=== PATIENT | male | born 1990 | race Two or more races ===

== ENCOUNTER 2025-05-22 10:56 | Outpatient (REF) | payer OTHER, SELFPAY ==
[2025-05-22 17:33] LABS: MANUAL DIFF FLAG NO
[2025-05-22 17:47] LABS: Hematocrit 44.7 % (42.0-52.0); Hemoglobin 14.9 g/dl (14.0-18.0); Mean Corpuscular HGB Conc 33.3 g/dl (31.0-36.0); Mean Corpuscular Hemoglobin 30.8 pg (27.0-33.0); Mean Corpuscular Volume 92.5 fL (80.0-98.0); Platelet Count 264 X10*3/uL (160-400); Red Blood Count 4.83 X10*6/uL (4.60-5.80); White Blood Count 6.5 X10*3/uL (4.8-10.8)
[2025-05-22 17:48] LABS: Imm Gran Abs Auto 0.02 X10*3/uL (0.00-0.03); Imm Gran Pct Auto 0.3 % (0.0-0.4); Lymphocytes Absolute Auto 1.7 X10*3/uL (1.2-4.9); NRBC Abs Auto 0.000 X10*3/uL (0.0-0.012); NRBC Pct Auto 0.0 /100WBC (0.0-0.2)
[2025-05-22 18:04] LABS: Alanine Aminotransferase 23 U/L (0-40); Albumin Level 5.0 g/dL (3.5-5.0); Alkaline Phosphatase 66 U/L (39-117); Anion Gap 13 (12-20); Aspartate Amino Transferase 34 U/L (5-37); Blood Urea Nitrogen 11 mg/dL (9-16); Calcium 9.5 mg/dL (8.4-10.2); Carbon Dioxide 27 mmol/L (22-29); Chloride 105 mmol/L (96-108); Cholesterol 170 mg/dL (<200); Estimated Glomerular Filt Rate > 60; HDL Cholesterol 59 mg/dL (>40); Magnesium 1.9 mg/dL (1.6-2.6); Potassium 4.0 mmol/L (3.3-5.1); Sodium 141 mmol/L (135-145); Total Protein 7.6 g/dL (6.5-8.0); Triglycerides 43 mg/dL (<150)
[2025-05-22 18:33] LABS: Folate 10.9 ng/mL (> or = 4.0); Vitamin B12 535 pg/mL (200-900)
[2025-05-23 04:45] LABS: HBS Num1 0.61 mIU/mL (0-7.99); HBsAGNum1 0.38 S/CO (0.00-0.99); HIV Num 1 0.05 S/CO (0.00-0.99); Hepatitis B Surface Antigen Negative (Negative); ~HepC Num1 0.09 S/CO (0.00-0.79); ~Hepatitis B Surface Antibody NONREACTIVE (Nonreactive); ~Hepatitis C Antibody Nonreactive (Nonreactive)
[2025-05-23 05:35] LABS: Hemoglobin A1C 78.2849 umol/L
[2025-05-26 14:02] LABS: VITAMIN D (1,25 OH) D3 50 pg/mL; Vit D (1,25-Dihydroxy) Total 50 pg/mL (18-72); Vitamin D (1,25 OH) D2 <8 pg/mL
== END 2025-05-22 10:57 | disposition home or self-care (01) ==
LOC: HO.HKASLDS 10:56
PROVIDERS: PCP Student in an Organized Health Care Education/Training Program; Visit Provider Student in an Organized Health Care Education/Training Program
DX: Z13.9 Encounter for screening, unspecified (principal); R07.89 Other chest pain; B36.0 Pityriasis versicolor; F19.11 Other psychoactive substance abuse, in remission; F41.8 Other specified anxiety disorders; R14.0 Abdominal distension (gaseous); K30 Functional dyspepsia; F12.90 Cannabis use, unspecified, uncomplicated
CPT/HCPCS: 36415; 80053; 80061; 82607; 82652; 82746; 83036; 83735; 84443; 85025; 86706; 86803; 87340; 87389; 99202

== ENCOUNTER 2025-05-22 10:56 | Outpatient (AMB) | payer OTHER, SELFPAY ==
--- NOTE | 2025-05-22 10:59 | MHC.PC.OV ---
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 F/u Chest Pain & Hernia Kitchen Aide Required: No Accompanied by: Self / Same As Patient Allergies No Known Allergies Allergy (Verified 05/22/25 10:59) Tobacco use date assessed: 05/22/25 Dental Screening Dental Screen Date: 05/22/25 Did you have a dental visit in the last 12 months?: Yes Did you have a dental problem in the last 6 months where you did not have access to dental care?: No Was dental information given to patient?: Patient has dentist HPI HPI Comments History of Present Illness Details History of Present Illness The patient is a 35 year old male presenting with severe chest pain. Chest Pain: The patient reports a two-year history of strong, right-sided chest pain. He rates the pain as 20 on a 10-point scale and describes it as pulsating, sometimes causing panic attacks and nervousness as he fears it is cardiac in origin. The pain is associated with a sensation of gas buildup, can awaken him from sleep, and is exacerbated by lying flat. He notes that eating fast and drinking water quickly seem to affect it. For relief, he uses Tylenol, Gas-X, and lies in a prone position. A prior workup included a normal endoscopy, CAT scan, emergency room EKG, and a one-week Holter monitor. A drill bit sharpener did not find any issues such as gastritis. Tinea Versicolor: The patient has had spots on his body for a couple of years, which worsen with heat and sweat, particularly in the summer. 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 Medications: - Tylenol as needed for pain - Gas-X as needed for gas pain Social History: - Employment: The patient works installing fences. - Substance Use: The patient reports a smoking history of about 15 years. - He has a history of methamphetamine use, with his last use in , and denies any current illicit drug use. - Nutritional Intake: The patient has an unstable eating schedule, with lunch sometimes occurring at 3 p.m. - He sometimes skips dinner if he has a late lunch. - He is now trying to eat more slowly as he noticed it affects his symptoms. Diagnostic Results: - EKG: Normal. - Holter monitor: Normal. - Endoscopy: Normal. - CAT scan: Normal. Past Medical History - Chest pain for 2 years with a negative workup including a normal endoscopy, CAT scan, EKG, and Holter monitor. - History of methamphetamine use, last used in [id number]. - History of skin spots for 2 years. Health Maintenance - Comprehensive blood work ordered for general health screening, including a complete blood count, comprehensive metabolic panel, thyroid function, B12, folate, lipid panel, hemoglobin A1c, HIV, and hepatitis B and C. - Advised to keep a food and symptom journal to identify triggers. - Discussed lifestyle modifications, including eating habits. [facility] Medical History (Updated 05/22/25 @ 21:03 by Omega Soriano MD) Marijuana use Acid indigestion Bloating symptom Anxiety about health History of substance abuse Tinea versicolor Costochondral chest pain Chest pain in adult Family History (Updated 05/22/25 @ 11:00 by Everardo Sebastian MA) Father No problems noted. Mother No problems noted. Social History (Updated 05/22/25 @ 11:00 by Everardo Sebastian MA) Housing: Apartment Alcohol intake: current Alcohol intake frequency: a few times a month Patient Tobacco Use Status: Never used Tobacco service: No Current occupational status: employed Cognitive needs: No Hearing needs: No Vision needs: Yes (rx glasses) Questionnaire PHQ-9 Over the last 2 weeks, how often have you been bothered by any of the following problems? 1. Little interest or pleasure in doing things: not at all 2. Feeling down, depressed, or hopeless: not at all 3. Trouble falling or staying asleep, or sleeping too much: not at all 4. Feeling tired or having little energy: not at all 5. Poor appetite or overeating: not at all 6. Feeling bad about yourself - or that you are a failure or have let yourself or your family down: not at all 7. Trouble concentrating on things, such as reading the newspaper or watching television: not at all 8. Moving or speaking so slowly that other people could have noticed. Or the opposite - being so fidgety or restless that you have been moving around a lot more than usual: not at all 9. Thoughts that you would be better off or of hurting yourself in some way: not at all Total score: 0 Source: Developed by Drs. Cleveland Solorznao, Concepcion Christianson, Sameer Johnston and colleagues, with an educational carlos from [employer]. Thrive Questionnaire Date Thrive assessed: 05/20/25 I am a: Patient What is your living situation today?: I have a steady place to live Within the past 12 months, did the food you bought not last and you didn't have the money to get more?: Never true Within the past 12 months, did you worry whether your food would run out before you got money to buy more?: Never true Do you have trouble paying for medicines?: No Do you have trouble getting transportation to medical appointments?: No Do you have trouble paying your heating and electricity bill?: No Do you have trouble taking care of your child, family member or friend?: No Do you have trouble with day-to-day activities such as bathing, preparing meals, shopping, managing finances, etc.?: No Are you currently unemployed and looking for a job?: No Are you interested in more education?: No Please select the resources that you would like help with: None Currently or been in a relationship where the following occur: I choose not to answer THRIVE Score: 0 AUDIT C Alcohol Use Questionnaire (AUDIT-C) 1. How often do you have a drink containing alcohol?: Monthly or less 2. How many drinks containing alcohol do you have on a typical day when you are drinking?: 1 or 2 3. How often do you have six or more drinks on one occasion?: Never Total Score: 1 YANI-7 AMB Questionnaire YANI-7 Feeling nervous, anxious, or on edge: 0 = Not at all Not being able to stop or control worryin = Not at all Worrying too much about different things: 1 = Several days Trouble relaxin = Not at all Being so restless that it is hard to sit still: 0 = Not at all Becoming easily annoyed or irritable: 1 = Several days Feeling afraid as if something awful might happen: 0 = Not at all Total YANI-7 score (0-4 normal; 5-9 mild; 10-14 moderate; 15-21 severe): 2 Source: Developed by Drs. Cleveland Solorzano, Concepcion Christianson, Sameer Johnston and colleagues, with an educational carlos from [employer]. Review of Systems Narrative Review of Systems - Cardiovascular: Reports severe, pulsating right-sided chest pain. - Psychiatric: Reports experiencing panic attacks and nervousness with pain. - He has trouble sleeping due to worrying. - Neurological: Reports difficulty sleeping, which is sometimes interrupted by pain. - Gastrointestinal: Reports feeling of gas buildup associated with pain. - Integumentary: Reports having spots on his body for a few years that worsen with heat and sweat. - Respiratory: Denies waking up with shortness of breath. 10-point ROS reviewed and negative except as noted in HPI Physical exam (Primary Care) Vital Signs: Last Vital Signs Temp 98.2 F 05/22/25 11:01 Pulse 74 05/22/25 11:01 Resp 16 05/22/25 11:01 BP 123/74 05/22/25 11:01 Pulse Ox 100 05/22/25 11:01 Oxygen Delivery Method Room Air 05/22/25 11:01 BMI result Body Mass Index 19.6 Tobacco/Smoking Status: Tobacco use Status Tobacco use date assessed 05/22/25 05/22/25 11:07 Patient Tobacco Use Status Never used Tobacco 05/22/25 11:07 PHQ-9: PHQ-9 Score PHQ-9: Total score 0 05/22/25 11:07 Thrive Assessment: Date of Thrive Assessment Date Thrive assessed 05/20/25 05/22/25 11:07 Currently or been in a relationship where the following occur: I choose not to answer Narrative Physical Exam General: Well-appearing, in no acute distress. Vital signs: Within normal limits. HEENT: Normocephalic, atraumatic. PERRLA, EOMI. Conjunctiva clear, sclera anicteric. Oropharynx clear, mucous membranes moist. TMs intact bilaterally. Neck: Supple, no lymphadenopathy, no thyromegaly, no JVD or carotid bruits. Cardiovascular: RRR, normal S1/S2, no murmurs, rubs, or gallops. Peripheral pulses 2+ and symmetric. No edema. Respiratory: Lungs clear to auscultation bilaterally, no wheezes, rales, or rhonchi. Normal effort. Abdomen: Soft, non-tender, non-distended. Normoactive bowel sounds. No hepatosplenomegaly, no masses. MSK: Full range of motion, no joint swelling or deformity. Normal gait. Skin: Warm, dry, intact. No rashes, lesions, or pallor. Notable for spots and sweating, worse in the summer. Neuro: Alert and oriented x3. Cranial nerves II-XII intact. Strength 5/5 throughout. Sensation intact. Reflexes 2+ symmetric. Normal coordination and gait. Psych: Appropriate mood and affect. Normal judgment and insight. Reports stress and panic attacks related to chest pain. Coding Level of Care Code New Pt Level 4 (47692) Diagnoses Chest pain in adult R07.9 Costochondral chest pain R07.89 Tinea versicolor B36.0 History of substance abuse F19.11 Anxiety about health F41.8 Bloating symptom R14.0 Acid indigestion K30 Marijuana use F12.90 Assessment & Plan Assessment & Plan (1) Chest pain in adult: Comment: INTERCHEST Clinical Prediction Rule for Chest Pain in Primary Care from [employer] on 05/22/2025 RESULT SUMMARY: -1 points INTERCHEST Score Low risk CAD risk 2.1 % Probability of CAD Diagnostic workup can likely be done non-urgently if patient is otherwise stable Code(s): R07.9 - Chest pain, unspecified Category: Medical (2) Costochondral chest pain: Code(s): R07.89 - Other chest pain Category: Medical (3) Tinea versicolor: Code(s): B36.0 - Pityriasis versicolor Category: Medical (4) History of substance abuse: Code(s): F19.11 - Other psychoactive substance abuse, in remission Category: Medical (5) Anxiety about health: Code(s): F41.8 - Other specified anxiety disorders Category: Medical (6) Bloating symptom: Code(s): R14.0 - Abdominal distension (gaseous) Category: Medical (7) Acid indigestion: Code(s): K30 - Functional dyspepsia Category: Medical (8) Marijuana use: Code(s): F12.90 - Cannabis use, unspecified, uncomplicated Category: Social Hx Plan Consent Patient was informed and verbally consented to the use of an ambient scribe for clinic note documentation during this visit. Plan 1. Chest Pain, Unspecified - The etiology of the pain is unlikely to be cardiac given the prior negative workup. - Differential diagnoses include gastrointestinal (acid indigestion) and musculoskeletal (costochondritis) causes. - Plan is to initiate a conservative trial of omeprazole 20 mg daily for possible acid reflux. - Prescribed ibuprofen 800 mg for pain and inflammation. - A muscle relaxant, 5 mg, will be started at half a tablet at night. - The patient was advised to maintain a food and symptom diary to track potential triggers. - Ordered comprehensive lab work including CBC, CMP, thyroid panel, vitamin B12, folate, lipid panel, HbA1c, HIV, and hepatitis panel. - Follow-up scheduled in two weeks to review lab results and assess response to treatment. 2. Tinea Versicolor - The patient complains of skin spots consistent with a fungal infection that worsens with heat and sweat. - A topical cream will be prescribed. Discussion Notes I discussed with the patient that his chest pain is unlikely to be cardiac in origin based on his prior negative workup, including an EKG and Holter monitor. I explained that the differential diagnosis includes musculoskeletal inflammation, like costochondritis, and gastrointestinal issues, such as acid ingestion. To address these possibilities, I am prescribing omeprazole 20 mg daily, ibuprofen 800 mg for pain, and a 5 mg muscle relaxer to be taken at night. I instructed him to keep a two-week journal documenting his diet and symptoms to help identify triggers. Comprehensive bloodwork was ordered to provide a baseline of his overall health. For the chronic skin spots, which appear to be fungal, I will send a prescription for a cream. We will have a follow-up visit in two weeks to review the lab results and assess his response to the medication. Patient Instructions - Take one Omeprazole 20 mg pill every day before breakfast. - You may take one Ibuprofen 800 mg tablet when you have pain. - For the muscle relaxer, start by taking half of a pill at night. - If you do not feel overly tired the next day, you can take a whole pill at night. - For the next two weeks, please keep a journal documenting what you eat, the time you eat, and any pain you experience. - We will draw your blood for lab tests today. - A prescription for a cream for the spots on your skin will be sent to your pharmacy. - Please schedule a follow-up appointment in two weeks. - Be reassured that the pain you are feeling is not coming from your heart. Medical Decision Making The patient is a 35-year-old male with a two-year history of severe right-sided chest pain. A cardiac etiology is considered highly unlikely given the chronicity of the symptoms and the extensive negative prior workup, which includes a normal EKG and a week-long Holter monitor. The presentation, with pain related to meals and a sensation of gas, along with tenderness on palpation, makes a musculoskeletal or gastrointestinal cause more probable. The primary differential diagnoses are costochondritis and acid reflux. The plan is to treat empirically for both conditions with a trial of omeprazole for acid suppression, and ibuprofen and a muscle relaxant for musculoskeletal inflammation and pain. Comprehensive lab work is ordered to establish a complete health baseline and rule out any other underlying systemic issues. A symptom diary will help to clarify triggers. Follow-up in two weeks will allow for reassessment of his symptoms and review of laboratory findings. Total time spent caring for the patient today was 45 minutes. This includes time spent before the visit reviewing the chart, time spent documenting, and time spent reviewing laboratory results, diagnostic imaging, medications, performing a medically necessary evaluation, counseling on diagnoses, care coordination, ordering appropriate tests, ordering appropriate medications, review of tests performed by other providers, reporting test results with the patient. Orders: Orders Hemoglobin A1c Today Z13.9 - Encounter for screening, unspecified Hepatitis B Surface Antigen Today Z13.9 - Encounter for screening, unspecified TSH reflex Free T4 Today Z13.9 - Encounter for screening, unspecified UA CC w/rflx Micro + Cult Today Z13.9 - Encounter for screening, unspecified Vitamin B12 and Folate Today Z13.9 - Encounter for screening, unspecified Complete Blood Count Auto Diff Today Z13.9 - Encounter for screening, unspecified Comprehensive Met. Panel Today Z13.9 - Encounter for screening, unspecified Hepatitis B Surface Antibody Today Z13.9 - Encounter for screening, unspecified Hepatitis C Antibody Today Z13.9 - Encounter for screening, unspecified HIV Ab/Ag Today Z13.9 - Encounter for screening, unspecified Lipid Panel Today Z13.9 - Encounter for screening, unspecified Magnesium Today Z13.9 - Encounter for screening, unspecified Vitamin D 1,25 dihydroxy Today Z13.9 - Encounter for screening, unspecified Medications: New omeprazole 20 mg PO BID 60 caps 0RF ibuprofen 800 mg PO Q8H 30 tabs 0RF cyclobenzaprine 5 mg PO BEDTIME 30 tabs 0RF miconazole nitrate 2% 1 appl topical BID 30 grams 0RF 2 weeks
[2025-05-22 11:01] VITALS: BP 123/74; PULSE 74; RESP 16; TEMP 36.8; O2SAT 100; BMI 19.6
--- OUTSIDE RECORDS SUMMARY | 2025-05-22 13:44 | XMS_ITS | Clinical Summary ---
Author Organization [facility] [employer] [facility] ity Address [address] [place] [address] Care Team Providers Care Lead Software Engineer Name Role Phone Unavailable Primary Care Provider Unavailabl e Social History Tobacco Use Types Packs/Day Years Used Date Smoking Tobacco: Never Assessed Sex and Gender Information Value Date Recorded Sex Assigned at Not on file Legal Sex Male 1:01 PM EST Gender Identity Not on file Sexual Orientation Not on file Plan of Treatment Health Maintenance Due Date Last Done Comments DTaP,Tdap,and Td Vaccines (1 - Tdap) 2010 Hepatitis B Vaccines (1 of 3 - 19+ 3-dose series) 2010 HPV Vaccines (1 - 3-dose SCD M series) 2018 Depression Screening 07/24/2024 COVID-19 Vaccine (1 - 2023-2 5 season) 2025 Influenza Vaccine (#1) 2025 RSV Immunization Adult Patie nts (1 - 1-dose 75+ series) 2066 HIB Vaccines Aged Out No longer eligi ble based on patient's age to complete this topic Hepatitis A Vaccines Aged Out No long er eligible based on patient's age to complete this topic IPV Vaccines Aged Out No longer eligi ble based on patient's age to complete this topic MMR Vaccines Aged Out No longer eligi ble based on patient's age to complete this topic Meningococcal ACWY Vaccine Aged Out N o longer eligible based on patient's age to complete this topic Meningococcal B Vaccine Aged Out No l onger eligible based on patient's age to complete this topic Pneumococcal Vaccine: Pediat rics (0 to 5 Years) and At-Risk Patients (6 to 49 Years) Aged Out No longer eligible b ased on patient's age to complete this topic RSV Immunization Patients Un fabio 20 months Aged Out No longer eligible b ased on patient's age to complete this topic Varicella Vaccines Aged Out No longer eligible based on patient's age to complete this topic
--- OUTSIDE RECORDS SUMMARY | 2025-05-22 13:44 | XMS_ITS | Clinical Summary ---
Author Organization [facility] Address [address] [place] [address] Care Team Providers Care Meat Counter Worker Name Role Phone Faheem Patterson Primary Care Provider [phone] Allergies No known active allergies Medications omeprazole (PriLOSEC) 40 mg capsule Take 1 capsule (40 mg total) by mouth once a day. 30 capsule 10/07/2024 Active Active Problems Problem Noted Date Diagnosed Date Palpitations 11/15/2023 Assessment & Plan (11/16/2023 2:57 PM EDT): Recent hospital visit for chest pain, workup was notable for costochondritis. He does get improvement when he takes ibuprofen. However given his report of palpitations out of abundance of caution, I will proceed to check a Holter monitor. He does need some updated labs as well which have been ordered at today's visit Gastroesophageal reflux disease 11/15/2023 Assessment & Plan (11/16/2023 2:57 PM EDT): He does have an upcoming endoscopy scheduled with GI Dr. Haq. For now antacids refilled. Once again encouraged GERD precautions. Epigastric pain 09/13/2023 Blurry vision, bilateral 09/13/2023 Immunizations Immunization Administration Dates Next Due Tetanus Toxoid, Reduced Diph theria Toxoid, and Acellular Pertussis Vaccine, Adsorbed 11/15/2023 Social History Tobacco Use Types Packs/Day Years Used Date Smoking Tobacco: Never Smokeless Tobacco: Never Tobacco Cessation:Counseling Given: Not Answered Alcohol Use Standard Drinks/Week Comments Yes 0 (1 standard drink = 0.6 oz pur e alcohol) occasionally [facility] Utilities Answer Date Recorded In the past 12 months has th e electric, gas, oil, or water company threatened to shut off services in your home? No 11/14/2023 Hunger Vital Sign Answer Date Recorded Within the past 12 months, y ou worried that your food would run out before you got the money to buy more. Never true 11/14/19 24 Within the past 12 months, t he food you bought just didn't last and you didn't have money to get more. Never true 11/14/2023 Transportation Answer Date Recorded In the past 12 months, has l ack of reliable transportation kept you from medical appointments, meetings, work or from getting things needed for daily living? No 11/14/2023 Housing Answer Date Recorded Housing Risk Low 1 11/14/2023 Housing Risk Medium 1 11/14/2023 Housing Risk High 1 11/14/2023 What is your living situation today? [facility] 11/14/2023 Sex and Gender Information Value Date Recorded Sex Assigned at Male 09/12/2023 3:05 PM EST Legal Sex Male 4:51 PM EDT Gender Identity Male 11/04/2023 10:43 PM EDT Sexual Orientation Straight 11/04/2023 10 :43 PM EDT Last Filed Vital Signs Vital Sign Reading Time Taken Comments Blood Pressure 100/60 01/02/2025 10:05 AM EDT Pulse 80 01/02/2025 10:05 AM EDT Temperature 36.7 C (98 F) 01/02/2025 8:21 AM EDT Respiratory Rate 18 01/02/2025 10:05 AM EDT Oxygen Saturation 97% 01/02/2025 10:05 AM EDT Inhaled Oxygen Concentration - - Weight 59 kg (130 lb) 01/02/2025 8:21 AM EDT Height 175.3 cm (5' 9 ) 01/02/2025 8:21 AM EDT Body Mass Index 19.2 01/02/2025 8:21 AM EDT Plan of Treatment Health Maintenance Due Date Last Done Comments Varicella Vaccines (1 of 2 - 13+ 2-dose series) 02/27/2004 Hepatitis B Vaccines (1 of 3 - 19+ 3-dose series) 2010 Alcohol/Substance Use Screening 07/24/2024 Depression Screening and Follow-Up 07/24/2024 09/13/2023 Social Drivers of Health Melissa ual Screening 07/24/2024 COVID-19 Vaccine (1 - 2024-2 6 season) 2025 Influenza Vaccine (#1) 2025 DTaP,Tdap,and Td Vaccines (2 - Td or Tdap) 11/14/2033 11/15/2023 RSV Vaccine (60+ years old a nd patients) (1 - 1-dose 75+ series) 2066 Oral Health Screening Discontinued 11/14/2023 HIV Screening Completed 11/23/2023 Hepatitis C Screening Completed 11/23/2023 Pneumococcal Vaccine: Pediat bipin (0-5 Years) and At-Risk Patients (6-50 Years) Aged Out No longer eligible b ased on patient's age to complete this topic Procedures * Due to [place] [facility] law, this organization might not be sharing negative HIV tests. Procedure Name Priority Date/Time Associated Diagnosis Comments HEPATITIS PANEL, ACUTE Routine 11/23/2023 7:51 AM EDT Healthcare maintenance from Last 3 Months or Most Recently Relevant to Health Maintenance Results * Due to [place] [facility] law, this organization might not be sharing negative HIV tests. * Hepatitis Panel, Acute (11/23/2023 7:51 AM EDT) Hepatitis A IgM Antibody Interpretation Nonreactive Nonreactive 11/23/2023 12:00 PM EDT [facility] Hepatitis B Core IgM Antibody Interpretation Nonreactive Nonreactive 11/23/2023 12:00 PM EDT [facility] Hepatitis B Surface Antigen Interpretation Non-Reactive Non-Reactive 11/23/2023 12:00 PM EDT [facility] Hepatitis C Antibody Interpretation Nonreactive Nonreactive 11/23/2023 12:00 PM EDT [facility] Blood Structure of peripheral vein / Unknown Venipuncture / Unknown 11/23/2023 7:51 AM EDT 11/23/2023 8:27 AM EDT us [facility] BLOOD ORDERABLES Final Re sult [facility] [address] [place] [address], [place] [phone] from Last 3 Months or Most Recently Relevant to Health Maintenance Insurance [address] [place] [id number] [facility] [employer] Advance Directives Healthcare Agents on File Name Relationship Healthcare Agent Relationshi p Communication Karina Zafar Spouse Next of Kin Care Teams Meat Counter Worker Relationship Specialty Start Date End Date Faheem Patterson DO [address] [place] [id number] PCP - General Family Medicine 10/23/24
== END 2025-05-22 11:44 | disposition home or self-care (01) ==
LOC: HO.HMCFMS 10:57
PROVIDERS: PCP Student in an Organized Health Care Education/Training Program; Visit Provider Student in an Organized Health Care Education/Training Program
DX: R07.9 Chest pain, unspecified (principal); R07.89 Other chest pain; B36.0 Pityriasis versicolor; F19.11 Other psychoactive substance abuse, in remission; F41.8 Other specified anxiety disorders; R14.0 Abdominal distension (gaseous); K30 Functional dyspepsia; F12.90 Cannabis use, unspecified, uncomplicated